=== PATIENT | male | born 2005 | race Caucasian/White ===

== ENCOUNTER 2023-05-04 18:16 | Outpatient (CLI) | payer BC, SELFPAY ==
--- NOTE | 2023-05-04 18:49 | XRR_ITS ---
PROCEDURE INFORMATION: Exam: XR Chest Exam date and time: 05/04/2023 6:46 PM Age: 17 years old Clinical indication: Injury or trauma; Other: 800 engine dropped on chest; Blunt trauma (contusions or hematomas); Injury date: Today; Patient HX: PT had a 800 lb engine drop on chest. C/O chest pain and hurts when taking breath in. C/O pain on RT side of chest and around to scapula TECHNIQUE: Imaging protocol: Radiologic exam of the chest. Views: 2 views. COMPARISON: CR XR shoulder LT min 2V* [id number] 08/22/2019 11:29 PM FINDINGS: Lungs: Unremarkable. No consolidation. Pleural spaces: Unremarkable. No pleural effusion. No pneumothorax. Heart/Mediastinum: Unremarkable. No cardiomegaly. Bones/joints: Unremarkable. XR/XR chest 2V* [id number] IMPRESSION: No acute findings.
== END 2023-05-04 18:17 | disposition home or self-care (01) ==
PROVIDERS: Visit Provider Registered Nurse Neonatal Intensive Care
DX: S29.8XXA Other specified injuries of thorax, initial encounter (principal); W20.8XXA Other cause of strike by thrown, projected or falling object, initial encounter
CPT/HCPCS: 71046

== ENCOUNTER 2023-07-30 18:12 | Emergency (ER) | payer BC, MEDICAID, SELFPAY ==
[2023-07-30 18:16] VITALS: PULSE 64; RESP 16; TEMP 37; O2SAT 99; BMI 23.6
--- NOTE | 2023-07-30 18:43 | CTR_ITS ---
PROCEDURE INFORMATION: Exam: CT Neck With Contrast Exam date and time: 07/30/2023 8:15 PM Age: 17 years old Clinical indication: Injury or trauma; Other: Hit in neck; Bleeding/hemorrhage; Additional info: Blunt trauma, superior/anterior throat hit by metal abena. Bleeding TECHNIQUE: Imaging protocol: Computed tomography of the neck with contrast. Radiation optimization: All CT scans at this facility use at least one of these dose optimization techniques: automated exposure control; mA and/or kV adjustment per patient size (includes targeted exams where dose is matched to clinical indication); or iterative reconstruction. Contrast material: OMNI 350; Contrast volume: 100 ml; Contrast route: INTRAVENOUS (IV); REPORTING DATA: Count of CT and Cardiac NM exams in prior 12 months: This patient has received 0 known CTs and 0 known cardiac nuclear medicine studies in the 12 months prior to the current study. COMPARISON: CT head wo con* [id number] 07/30/2023 8:11 PM RADIATION DOSE METRICS: Total DLP (mGy-cm): 252.76 FINDINGS: Pharynx: Unremarkable. No significant tonsillar enlargement. Larynx: No enlargement of the epiglottis. Prevertebral and retropharyngeal spaces: Unremarkable. Salivary glands: Unremarkable. Glands are normal in size. Thyroid: No enlarged or calcified nodules. Lymph nodes: No lymphadenopathy. Trachea: Unremarkable. Lungs: The lung apices are unremarkable. Bones/joints: Vertebral body heights are preserved. No compression fractures are noted. Vertebral alignment is physiologic. Disc heights are preserved. No significant intervertebral disc narrowing. The facet joints are intact. No acute fracture or other acute osseous abnormality. Vasculature: Vascular structures appear unremarkable. Soft tissues: No acute soft tissue abnormality. No soft tissue hematoma. CT/CT neck w con* [id number] IMPRESSION: No acute abnormality demonstrated.
--- NOTE | 2023-07-30 18:43 | CTR_ITS ---
PROCEDURE INFORMATION: Exam: CT Head Without Contrast Exam date and time: 07/30/2023 8:11 PM Age: 17 years old Clinical indication: Injury or trauma; Other: Hit by abena; Blunt trauma (contusions or hematomas); Additional info: Blunt trauma, hit by metal abena, possible loc. H/a TECHNIQUE: Imaging protocol: Computed tomography of the head without contrast. Radiation optimization: All CT scans at this facility use at least one of these dose optimization techniques: automated exposure control; mA and/or kV adjustment per patient size (includes targeted exams where dose is matched to clinical indication); or iterative reconstruction. REPORTING DATA: Count of CT and Cardiac NM exams in prior 12 months: This patient has received 0 known CTs and 0 known cardiac nuclear medicine studies in the 12 months prior to the current study. COMPARISON: No relevant prior studies available. RADIATION DOSE METRICS: Total DLP (mGy-cm): 1160.5 FINDINGS: Brain: Unremarkable. No hemorrhage. No significant white matter disease. No edema. Cerebral ventricles: No ventriculomegaly. Paranasal sinuses: Visualized sinuses are unremarkable. No air fluid levels. Mastoid air cells: Unremarkable as visualized. No mastoid effusion. Bones/joints: Unremarkable. No acute fracture. Soft tissues: Unremarkable. CT/CT head wo con* [id number] IMPRESSION: No acute intracranial abnormality demonstrated.
--- NOTE | 2023-07-30 18:46 | ED_ITS ---
HPI - Neck Pain/Injury General: Chief Complaint: Neck Pain/Injury Stated Complaint: Throat Injury Time Seen by Provider: 07/30/23 18:32 Source: patient Mode of arrival: ambulatory Limitations: no limitations History of Present Illness: Patient presents to the emergency department today after being referred on from urgent care. Patient states while working today he was impacted in the anterior throat by a metal abena. 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 It did cause an open wound with bleeding. Patient is not sure if he lost consciousness but feels like there was a brief moment where he was knocked out. He states the other employees indicated he had loss of consciousness. Patient is complaining of headache bilaterally behind the ears. He has not had nausea or vomiting. He denies blurry vision. Significant other indicates he seems to be at his neurological baseline. Patient reports that he went to the urgent care just to get a tetanus shot however, on his physical examination they told him they were concerned about something they were hearing in his throat and wanted him to be seen here. He denies any difficulty breathing and does not feel like his saliva is getting caught or stuck in his throat. Review of Systems General: Reports: 10 or more systems reviewed and unremarkable except in HPI and below Physical Exam Const: COMMON NORMALS: no acute distress, patient oriented x3 and alert HENMT: OTHER: No signs of facial trauma. Airways patent but, on oral exam, patient is a Mallampati 4. No signs of bleeding in the oral cavity. Patient denies any significant pain on palpation of the TMJs, jaw, or maxillary region. Eye: COMMON NORMALS: Equal, round and reactive pupils present, EOMs intact bilaterally and conjunctivae normal CONJUNCTIVA: Yes conjunctivae normal PUPIL: Yes Equal, round and reactive pupils present Neck/C-Spine: COMMON NORMALS: no JVD OTHER: Patient is nontender palpation along the cervical vertebrae. Patient does have tenderness along the lateral and anterior soft tissues of the neck bilaterally. Patient has a wound with dried blood noted to the superior, anterior and slightly right of midline on his neck. Patient demonstrates ability to swallow. Lymph: LYMPHATIC: no lymphadenopathy noted Resp: COMMON NORMALS: normal respiratory effort, No retractions and No use of accessory muscles OTHER: No stridor at rest. Auscultation of the airways appear unremarkable but, possible faint crepitus with pressure around the upper airway. Cardio: COMMON NORMALS: no JVD and regular rate RATE: regular rate : COMMON NORMALS: Yes no CVA tenderness BLADDER/KIDNEY EXAM: Yes no CVA tenderness Back/Pelvis: COMMON NORMALS: no CVA tenderness, thoracic and lumbar spine normal to inspection and thoraco-lumbar ROM normal Extremity: COMMON NORMALS: normal to inspection, full ROM and no pedal edema Neuro: COMMON NORMALS: patient oriented x3 SENSORIUM/ORIENTATION: Yes alert CRANIAL NERVES: Yes CN normal except as noted SPEECH: speech normal G AIT: Yes Normal gait present Skin: COMMON NORMALS: no rashes or lesions noted and turgor normal GENERAL SKIN EXAM: no rashes or lesions noted and turgor normal Course Vital Signs: Vital signs: Vital Signs Temperature 98.6 F 07/30/23 18:16 Pulse Rate 63 07/30/23 21:00 Respiratory Rate 16 07/30/23 18:16 Blood Pressure 122/57 07/30/23 21:00 Pulse Oximetry 93 07/30/23 21:00 Oxygen Delivery Me thod Room Air 07/30/23 21:00 MDM - Neck Pain/Injury Medical Decision Making Given the location of the patient's injury and surrounding tenderness we did perform a CT to make sure no underlying injury to cartilaginous ring or hyoid bone was found. Also, patient had CT of his head given his reported loss of consciousness and posterior auricular headaches bilaterally. Both scans were clear. Patient was given wound care instructions as well as a prescription for mupirocin cream to apply to prevent infection. Though he is to be seen and reevaluated for any concerns or suspicion of infection. Patient was given information regarding signs and symptoms of concussion as he may still have some shock and adrenaline in his system and he may not feel or notice some symptoms until tomorrow. Patient is given tomorrow off work to continue monitoring symptoms, take [id number] medications, and perform his wound care. He is to be seen and reevaluated for any acute change or worsening in any condition whether that is concussion or concerns for infection. Patient verbalized understanding and agreement to the treatment plan. Differential Diagnosis Likely strain of neck muscle (Neck contusion, neck abrasion, neck laceration, concussion); Unlikely whiplash injury to neck Lab Data Radiology Impressions Head CT 07/30/23 18:43 IMPRESSION: No acute intracranial abnormality demonstrated. Neck CT 07/30/23 18:43 IMPRESSION: No acute abnormality demonstrated. Discharge Plan Discharge Patient Disposition: Home Clinical Impression: Contusion of neck, Neck abrasion Condition: Stable Prescriptions: New mupirocin 2 % ointment 1 applic topical BID Qty: 22 0RF Discharge Orders: Discharge ED (Routine); Ordered 07/30/23 Ordered By: Luba Duarte Discharge Diet: Usual diet Discharge Activity: Increase activity as tolerated Patient Instructions: Contusion, Concussion (ED), Wound Care (General) Activity Restrictions/Additional Instructions: Imaging today shows no signs of trauma to the larynx or trachea from the impact from the abena. The area may still be tender and sore for several days. You can apply ice for 15 to 20 minutes, multiple times throughout the day. You can also use Tylenol and ibuprofen to help with discomfort as well. I would like you to perform wound care twice a day with warm water and mild soap. I am also providing you a prescription for mupirocin cream. You can apply this topically after each of your wound cleanings to help prevent infection. If it suddenly becomes red, swollen, or drains a thick green or yellow material concerning for infection you need to be seen and reevaluated. It is still possible to show signs of concussion which may be delayed or currently hidden due to shock and adrenaline but, can show up later. Watch for sudden severe headaches, blurry or change in vision, nausea or vomiting, dizziness without ability to stand or walk or confusion. If these develop, you need to be seen and reevaluated again. 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
[2023-07-30] MEDS: ketorolac 30 mg/mL INJ IVP (19:10)
[2023-07-30] MEDS: tetanus-dipt-pertussis 0.5 mL SDV IM (19:12)
[2023-07-30 19:19] VITALS: BP 121/72; PULSE 66; O2SAT 95
[2023-07-30 20:00] VITALS: BP 115/69; PULSE 67; O2SAT 92
[2023-07-30 20:30] VITALS: BP 124/68; PULSE 77; O2SAT 91
[2023-07-30 21:00] VITALS: BP 122/57; PULSE 63; O2SAT 93
--- NOTE | 2023-07-31 12:57 | DCPLANNER ---
coding manager called patient due to no primary care physician - patient declines at this time.
== END 2023-07-30 21:33 | disposition home or self-care (01) ==
PROVIDERS: Emergency Provider Physician Assistant
DX: S10.93XA Contusion of unspecified part of neck, initial encounter (principal); S10.91XA Abrasion of unspecified part of neck, initial encounter; W20.8XXA Other cause of strike by thrown, projected or falling object, initial encounter; Z23 Encounter for immunization
CPT/HCPCS: 70450; 70491; 90471; 90715; 96374; 99284; J1885

== ENCOUNTER 2024-03-20 21:47 | Emergency (ER) | payer BC, MEDICAID, SELFPAY ==
[2024-03-20 22:02] VITALS: BP 107/61; PULSE 68; RESP 17; TEMP 36.8; O2SAT 100; BMI 28.4
[2024-03-20 23:25] VITALS: BP 109/69; PULSE 61; RESP 18; O2SAT 98
[2024-03-20 23:27] LABS: Basophils % 0.3 %; Eosinophils # 0.1 10^3/uL (0.0-0.8); Eosinophils % 1.6 %; Hematocrit 46.8 % (37-53); Lymphocytes # 2.2 10^3/uL (1.5-6.5); Lymphocytes % 34.6 %; Mean Corpuscular HGB Conc 32.9 g/dL (30-55); Mean Corpuscular Hemoglobin 27.8 pg (27-33); Mean Corpuscular Volume 84.6 fl (82-101); Mean Platelet Volume 11.2 fL (7.4-10.4); Monocytes # 0.5 10^3/uL (0.2-0.9); Monocytes % 7.3 %; Neutrophils # 3.51 10^3/uL (1.8-8.0); Nucleated Red Blood Cells % 0 %; Platelet Count 178 10^3/cmm (157-399); Red Blood Count 5.53 10^6/uL (3.85-5.65); White Blood Count 6.27 10^3/uL (4.5-13.0)
[2024-03-20 23:44] LABS: Alanine Aminotransferase 22 U/L (0-41); Albumin Level 4.4 g/dL (3.5-5.2); Alkaline Phosphatase 66 U/L (40-130); Anion Gap 12.7 (5-19); Aspartate Amino Transferase 17 U/L (0-40); Blood Urea Nitrogen 17 mg/dL (6-20); Calcium 9.1 mg/dL (8.5-10.5); Carbon Dioxide 27 mmol/L (22-29); Chloride 104 mmol/L (98-107); Creatinine Clr Calc Pharmacy 146.2767; Globulin 2.9 g/dL (1.3-4.6); Glomerular Filtration Rate 123.2 mL/min (90-130); Glucose 99 mg/dL (65-115); Lipase 46 U/L (13-60); Osmolality Calculated 292 mOsm/kg (285-295); Potassium 3.7 mmol/L (3.5-5.1); Sodium 140 mmol/L (136-145); Total Bilirubin 0.3 mg/dL (0.15-1.2); Total Protein 7.3 g/dL (6.6-8.7)
--- NOTE | 2024-03-20 23:44 | CTR_ITS ---
PROCEDURE INFORMATION: Exam: CT Abdomen And Pelvis With Contrast Exam date and time: 03/20/2024 11:57 PM Age: 18 years old Clinical indication: Abdominal pain; Localized; Patient HX: C/O lower abd pain; Additional info: R and L lq pain TECHNIQUE: Imaging protocol: Computed tomography of the abdomen and pelvis with contrast. Radiation optimization: All CT scans at this facility use at least one of these dose optimization techniques: automated exposure control; mA and/or kV adjustment per patient size (includes targeted exams where dose is matched to clinical indication); or iterative reconstruction. Contrast material: OMNI 350; Contrast volume: 100 ml; Contrast route: INTRAVENOUS (IV); COMPARISON: CR XR chest 2V* [id number] 05/04/2023 6:46 PM RADIATION DOSE METRICS: Total DLP (mGy-cm): 546.21 FINDINGS: Liver: Normal. No mass. Gallbladder and bile ducts: Normal. No calcified stones. No ductal dilation. Pancreas: Normal. No ductal dilation. Spleen: Spleen enlarged to 15 cm. Adrenal glands: Normal. No mass. Kidneys and ureters: Normal. No hydronephrosis. Stomach and bowel: Prominent fluid in the small bowel without dilation may reflect an enteritis. Appendix: No evidence of appendicitis. Intraperitoneal space: Unremarkable. No free air. No significant fluid collection. Vasculature: Unremarkable. No abdominal aortic aneurysm. Lymph nodes: Unremarkable. No enlarged lymph nodes. Urinary bladder: Unremarkable as visualized. Reproductive: Unremarkable as visualized. Bones/joints: Unremarkable. No acute fracture. Soft tissues: Unremarkable. CT/CT abdomen pelvis w con* [id number] IMPRESSION: 1. Prominent fluid in the small bowel without dilation may reflect an enteritis. 2. Spleen enlarged to 15 cm.
[2024-03-20] MEDS: iohexol 350 mg/mL 500 mL Btl (per mL) IV (23:58)
[2024-03-21] MEDS: sodium chloride 0.9% 1,000 ML 999 ML IV (00:25)
[2024-03-21] MEDS: ketorolac 30 mg/mL INJ IVP (00:25)
[2024-03-21] MEDS: ondansetron 2 mg/ML SDV 2 mL 4 MG IVP (00:26)
[2024-03-21 00:27] VITALS: BP 123/67; PULSE 67; RESP 18; O2SAT 99
[2024-03-21 00:32] LABS: Add Urine Microscopic? NO; Charge for UA Resulting for Rev
[2024-03-21 00:41] LABS: Bilirubin Urine Neg (Negative); Blood Urine Neg (Negative); Glucose Urine UA Norm (Normal); Ketones Urine Negative (Negative); Leukocyte Esterase Urine Negative (Negative); Nitrate Urine Negative (Negative); Protein Urine Neg (Negative); Urine Appearance Clear (CLEAR); Urine Color Yellow (Yellow); Urobilinogen Urine Neg (Negative); pH Urine 6.5 (5-7)
--- NOTE | 2024-03-21 00:45 | ED_ITS ---
HPI - Abdominal Pain 2 General: Chief Complaint: Abdominal Pain Stated Complaint: low shooting abd pain dizzy Time Seen by Provider: 03/20/24 23:06 History of Present Illness: 18-year-old with greater than right-side d abdominal pain. He has not had any vomiting or diarrhea. He has been nauseated. Belly seems to hurt worse with straightening up and being in the upright position. He is also getting dizzy when try to straighten up in the upright position. Associated Symptoms: Denies chills, fever(s), hematochezia and vomiting Review of Systems 2 Const: Denies: fever(s), chills or body aches Eyes: Denies: change in vision Card: Denies: chest pain or palpitations Resp: Denies: dyspnea, productive cough, non-productive cough or wheezing GI: Denies: vomiting or hematochezia Skin/Breast: Denies: rash Neuro: Denies: headache(s), weakness in extremities, dizziness or confusion Physical Exam 2 Const: COMMON NORMALS: no acute distress GENERAL APPEARANCE: cooperative; not ill appearing and not frail appearing HENMT: COMMON NORMALS: normocephalic, atraumatic and Normal external nose present HEAD & SCALP: normocephalic and atraumatic FACE & SINUS: normal facial exam and face symmetric NOSE: Normal external nose present Eye: COMMON NORMALS: Equal, round and reactive pupils present and EOMs intact bilaterally PUPIL: Yes Equal, round and reactive pupils present Neck/C-Spine: GENERAL: Yes trachea midline Chest: CHEST: Yes Symmetrical chest wall rise Resp: COMMON NORMALS: normal respiratory effort, No retractions, No use of accessory muscles and clear to auscultation bilaterally AUSCULTATION: clear to auscultation bilaterally Cardio: COMMON NORMALS: regular rate and regular rhythm RATE: regular rate RHYTHM: regular rhythm GI: COMMON NORMALS: Normal to inspection, nondistended, normoactive bowel sounds present PALPATION: Yes Tenderness to palpation present (GI) and Yes Guarding due to palpation present (GI) Extremity: COMMON NORMALS: no pedal edema Neuro: SHAWN COMA SCALE: document GCS findings Shawn coma scale eye opening: Spontaneous [place] coma scale verbal response: Orientated Shawn coma scale motor response: Obey commands [place] coma scale total score: 15 S ENSORY EXAM: Yes extremities (intact) Psych: COMMON NORMALS: speech normal SPEECH: Yes normal speech Skin: COMMON NORMALS: no rashes or lesions noted GENERAL SKIN EXAM: no rashes or lesions noted Course 2 Vital Signs: Vital signs: Vital Signs Temperature 98.2 F 03/20/24 22:02 Pulse Rate 68 03/21/24 01:00 Respiratory Rate 16 03/21/24 01:00 Blood Pressure 136/67 03/21/24 01:00 Pulse Oximetry 97 03/21/24 01:00 Oxygen Delivery Me thod Room Air 03/21/24 00:27 MDM - Abdominal Pain Medical Decision Making Laboratories benign. CT shows prominent fluid in the small bowel reflecting a likely enteritis. Patient counseled. Symptomatic treatment. Lab Data 03/20/24 23:18 03/20/24 23:18 Labs/Radiology: Radiology Impressions Abdomen/Pelvis CT 03/20/24 23:44 IMPRESSION: 1. Prominent fluid in the small bowel without dilation may reflect an enteritis. 2. Spleen enlarged to 15 cm. Laboratory Results WBC 6.27 10^3/uL (4.5-13.0) 03/20/24 23:18 RBC 5.53 10^6/uL (3.85-5.65) 03/20/24 23:18 Hgb 15.40 g/dL (13.2-15.6) 03/20/24 23:18 Hct 46.8 % (37-53) 03/20/24 23:18 MCV 84.6 fl (82-101) 03/20/24 23:18 MCH 27.8 pg (27-33) 03/20/24 23:18 MCHC 32.9 g/dL (30-55) 03/20/24 23:18 RDW 12.0 % (12.1-15.1) L 03/20/24 23:18 Plt Count 178 10^3/cmm (157-399) 03/20/24 23:18 MPV 11.2 fL (7.4-10.4) H 03/20/24 23:18 Neut % (Auto) 56.0 % 03/20/24 23:18 Lymph % (Auto) 34.6 % 03/20/24 23:18 [place] % (Auto) 7.3 % 03/20/24 23:18 Eos % (Auto) 1.6 % 03/20/24 23:18 Baso % (Auto) 0.3 % 03/20/24 23:18 Neut # (Auto) 3.51 10^3/uL (1.8-8.0) 03/20/24 23:18 Lymph # (Auto) 2.2 10^3/uL (1.5-6.5) 03/20/24 23:18 [place] # (Auto) 0.5 10^3/uL (0.2-0.9) 03/20/24 23:18 Eos # (Auto) 0.1 10^3/uL (0.0-0.8) 03/20/24 23:18 Baso # (Auto) 0.0 10^3/uL (0.0-0.1) 03/20/24 23:18 Nucleated RBC % (auto) 0 % 03/20/24 23:18 Nucleated RBCs # 0.0 /100WBC 03/20/24 23:18 Sodium 140 mmol/L (136-145) 03/20/24 23:18 Potassium 3.7 mmol/L (3.5-5.1) 03/20/24 23:18 Chloride 104 mmol/L (98-107) 03/20/24 23:18 Carbon Dioxide 27 mmol/L (22-29) 03/20/24 23:18 Anion Gap 12.7 (5-19) 03/20/24 23:18 BUN 17 mg/dL (6-20) 03/20/24 23:18 Creatinine 0.8 mg/dL (0.7-1.2) 03/20/24 23:18 GFR Calculation 123.2 mL/min (90-130) 03/20/24 23:18 Glucose 99 mg/dL (65-115) 03/20/24 23:18 Calculated Osmolality 292 mOsm/kg (285-295) 03/20/24 23:18 Calcium 9.1 mg/dL (8.5-10.5) 03/20/24 23:18 Total Bilirubin 0.3 mg/dL (0.15-1.2) 03/20/24 23:18 AST 17 U/L (0-40) 03/20/24 23:18 ALT 22 U/L (0-41) 03/20/24 23:18 Alkaline Phosphatase 66 U/L (40-130) 03/20/24 23:18 C-Reactive Protein 3.0 mg/L (0.0-4.9) 03/20/24 23:18 Total Protein 7.3 g/dL (6.6-8.7) 03/20/24 23:18 Albumin 4.4 g/dL (3.5-5.2) 03/20/24 23:18 Globulin 2.9 g/dL (1.3-4.6) 03/20/24 23:18 Lipase 46 U/L (13-60) 03/20/24 23:18 Urine Color Yellow (Yellow) 03/21/24 00:25 Urine Appearance Clear (CLEAR) 03/21/24 00:25 Urine pH 6.5 (5-7) 03/21/24 00:25 Ur Specific [place] 1.010 (1.005-1.030) 03/21/24 00:25 Urine Protein Neg (Negative) 03/21/24 00:25 Urine Glucose (UA) Norm (Normal) 03/21/24 00:25 Urine Ketones Negative (Negative) 03/21/24 00:25 Urine Blood Neg (Negative) 03/21/24 00:25 Urine Nitrate Negative (Negative) 03/21/24 00:25 Urine Bilirubin Neg (Negative) 03/21/24 00:25 Urine Urobilinogen Neg mg/dL (Negative) 03/21/24 00:25 Ur Leukocyte Esterase Negative (Negative) 03/21/24 00:25 All radiology interpretation(s) finalized by discharge Discharge Plan Discharge Patient Disposition: Home Clinical Impression: Enteritis Condition: Stable Prescriptions: New ketorolac 10 mg tablet 10 mg PO TID PRN (Reason: pain) Qty: 10 0RF ondansetron 4 mg tablet,disintegrating 4 mg PO Q6H PRN (Reason: nausea and vomiting) Qty: 14 0RF No Action mupirocin 2 % ointment 1 applic topical BID Qty: 22 0RF Discharge Orders: Discharge ED (Routine); Ordered 03/21/24 Ordered By: Mario Maldonado Patient Instructions: Enteritis (ED), Opioid Safety, Pain Management Activity Restrictions/Additional Instructions: Follow a liquid diet for the next 24 hours. Medication as directed. Drink plenty of fluids. Return for worsening pain despite treatment, fever greater than 100, vomiting liquids or medications, other concerning symptoms. See your doctor next week. 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
[2024-03-21 01:00] VITALS: BP 136/67; PULSE 68; RESP 16; O2SAT 97
== END 2024-03-21 00:57 | disposition home or self-care (01) ==
PROVIDERS: Emergency Provider Emergency Medicine
DX: K52.9 Noninfective gastroenteritis and colitis, unspecified (principal)
CPT/HCPCS: 74177; 80053; 81003; 83690; 85025; 86140; 96361; 96374; 96375; 99285; J1885; J2405; J7030; Q9967

== ENCOUNTER 2024-07-05 20:42 | Emergency (ER) | payer BC, MEDICAID, SELFPAY ==
[2024-07-05 21:02] VITALS: BP 126/65; PULSE 65; RESP 16; TEMP 36.8; O2SAT 100; BMI 30.9
--- NOTE | 2024-07-05 21:30 | W.ED.DENTAL ---
HPI - Dental/Oral General: Chief complaint: Dental/Oral Stated complaint: front tooth pain swollen into nose Time Seen by Provider: 07/05/24 21:07 Source: patient Mode of arrival: ambulatory Limitations: no limitations History of Present Illness: Patient is a 18-year-old male presented to the emergency department complaining of dental pain for the past few weeks. History of poor dentition, states he has been trying to get into a dentist despite weight loss being upwards of a couple of months. Pain is noted to be primarily to his central incisors, notes the pain is starting to radiate towards the left maxillofacial region towards his ear. No fever, trouble breathing, painful swallowing, or other symptoms reported at this time. Does not report take anything for the pain. MD Complaint: tooth pain Onset (ago): week(s) Duration: constant Severity: severe Relieving factors: nothing Context: history of dental caries and poor dental care Associated symptoms: Reports ear or mastoid pain; Denies fever(s) Treatment prior to arrival: none Related Data Previous Rx's Medication Instructions Recorded mupirocin 2 % topical ointment 1 applic topical BID #22 grams 07/30/23 ketorolac 10 mg tablet 10 mg PO TID PRN pain #10 tabs 03/21/24 ondansetron 4 mg disintegrating 4 mg PO Q6H PRN nausea and 03/21/24 tablet vomiting #14 tabs amoxicillin 875 mg-potassium 1 tab PO BID 10 days #20 tabs 07/05/24 clavulanate 125 mg tablet prednisone 20 mg tablet 60 mg (3 x 20 mg) PO ONCE 5 days 07/05/24 #15 tabs Allergies Allergy/AdvReac Type Severity Reaction Status Date / Time No Known Allergies Allergy Verified 03/20/24 22:06 Review of Systems General: Reports: 10 or more systems reviewed and unremarkable except in HPI and below Const: Denies: fever(s), chills or fatigue Eyes: Denies: change in vision ENMT: Reports: dental pain, ear or mastoid pain and sinus pain; Denies: throat pain or nasal discharge Card: Denies: chest pain, palpitations, swelling of feet/ankles or lightheadedness Resp: Denies: dyspnea, productive cough or wheezing GI: Denies: abdominal pain, nausea, vomiting, diarrhea or constipation : Denies: flank pain, difficulty urinating, dysuria or urinary frequency Musc: Denies: neck pain, back pain or joint pain Skin/Breast: Denies: rash Neuro: Denies: headache(s), numbness in extremities or weakness in extremities Physical Exam Const: COMMON NORMALS: no acute distress and no limitations GENERAL APPEARANCE: cooperative, comfortable and well developed ORIENTATION/CONSCIOUSNESS: Yes awake HENMT: COMMON NORMALS: normocephalic, atraumatic, hearing grossly normal bilaterally and Normal external nose present HEAD & SCALP: normocephalic and atraumatic FACE & SINUS: normal facial exam NOSE: Normal external nose present MOUTH: Normal oral and palatal mucosa present TEETH & GINGIVA: Yes abnormal tooth and associated gingiva central incisor tender and dentin fractured, Yes caries, Yes multiple restorations and Yes poor dentition Eye: COMMON NORMALS: Equal, round and reactive pupils present, EOMs intact bilaterally and conjunctivae normal CONJUNCTIVA: Yes conjunctivae normal PUPIL: Yes Equal, round and reactive pupils present Neck/C-Spine: COMMON NORMALS: full ROM, supple and no JVD Resp: COMMON NORMALS: normal respiratory effort, No retractions, No use of accessory muscles and clear to auscultation bilaterally AUSCULTATION: clear to auscultation bilaterally Cardio: COMMON NORMALS: no JVD, regular rate, regular rhythm, No clicks present (Cardio), No murmurs present (Cardio) and No rub (Cardio) RATE: regular rate RHYTHM: regular rhythm Extremity: COMMON NORMALS: normal to inspection, full ROM and capillary refill normal Skin: COMMON NORMALS: no rashes or lesions noted GENERAL SKIN EXAM: no rashes or lesions noted Course Vital Signs: Vital signs: Vital Signs Temperature 98.3 F 07/05/24 21:02 Pulse Rate 65 07/05/24 21:02 Respiratory Rate 16 07/05/24 21:02 Blood Pressure 126/65 07/05/24 21:02 Pulse Oximetry 100 07/05/24 21:02 Oxygen Delivery Me thod Room Air 07/05/24 21:02 [facility] - Dental/Oral Medical Decision Making Patient presents for dental pain evolving over the past couple weeks. On exam he has horrible dentition with multiple restorations, and where his pain is reported there is fractured enamel. He states he is trying to get into a dentist, and I further encouraged him to continue trying to do this. We will treat for dental abscess at this time as he is noting expansion of the pain to his left face, treat with antibiotics and steroids. In addition he is given pain medications here in the emergency department prior to discharge. Return precautions were given. No radiology studies performed this visit Discharge Plan Discharge Patient Disposition: Home Clinical Impression: Dental abscess Condition: Stable Prescriptions: New prednisone 20 mg tablet 60 mg PO ONCE 5 Days Qty: 15 0RF amoxicillin-pot clavulanate 875-125 mg tablet 1 tab PO BID 10 Days Qty: 20 0RF No Action mupirocin 2 % ointment 1 applic topical BID Qty: 22 0RF ketorolac 10 mg tablet 10 mg PO TID PRN (Reason: pain) Qty: 10 0RF ondansetron 4 mg tablet,disintegrating 4 mg PO Q6H PRN (Reason: nausea and vomiting) Qty: 14 0RF Discharge Orders: Discharge ED (Routine); Ordered 07/05/24 Ordered By: Joshua Villalobos Discharge Diet: Usual diet Discharge Activity: Increase activity as tolerated Patient Instructions: Dental Abscess (ED) Activity Restrictions/Additional Instructions: Please continue following up with dentist. Take antibiotics and steroids as prescribed. Return with any new or worsening. Coding Level of Care Code ED Document Control Clerk for Chip Mejía
[2024-07-05] MEDS: HYDROcodone-acetaminophen 7.5-325 mg Tablet 1 TAB PO (21:38)
[2024-07-05] MEDS: dexamethasone 10 mg/mL INJ IM (21:39)
[2024-07-05] MEDS: amoxicillin-clav 875-125 mg Tablet 1 TAB PO (21:39)
== END 2024-07-05 21:46 | disposition home or self-care (01) ==
PROVIDERS: Emergency Provider Physician Assistant
DX: K04.7 Periapical abscess without sinus (principal)
CPT/HCPCS: 96372; 99284; J1100